=== PATIENT | female | born 1935 | race Caucasian/White ===

== ENCOUNTER 2021-06-05 19:27 | Emergency (ER) | payer MEDICARE, BC ==
[~2021-06-05] VITALS: Ht 165.1 cm; Wt 43.1 kg
[2021-06-05 21:29] LABS: Hematocrit 18.5 % (36.0-46.0); Mean Corpuscular Hemoglobin 32.2 pg (28.0-32.0); Mean Corpuscular Hgb Conc. 33.3 g/dL (32.0-36.0); Mean Corpuscular Volume 96.6 fL (80.0-100.0); Red Blood Cells 1.91 10^6/uL (4.0-5.20); Red Cell Distribution Width 19.2 % (11.8-14.3); White Blood Cell 19.3 10^3/uL (4.4-10.8)
[2021-06-05 21:30] LABS: INR 1.13 (0.9-1.15); Partial Thromboplastin Time 27.9 sec (23.6-33.0)
[2021-06-05 21:32] LABS: Albumin 2.1 g/dL (3.4-5.0); Calcium 7.8 mg/dL (8.5-10.1); Potassium 4.1 mmol/L (3.5-5.1)
[2021-06-05 21:34] LABS: BUN/Creatinine Ratio 18.2
[2021-06-05 21:41] LABS: Bilirubin, Total 0.7 mg/dL (0.2-1.0); Total Protein 5.5 g/dL (6.4-8.2)
[2021-06-05 21:58] LABS: Hemoglobin 6.1 g/dL (12.2-16.2)
[2021-06-05 22:00] LABS: Basophils % (manual) 0 (0.0-2.0); Blast Cells 0; Promyelocytes % 0; Reactive Lymphocytes 0
[2021-06-05 22:21] LABS: Band Neutrophils % (manual) 12; Eosinophils % (manual) 2 (0-7); Lymphocytes % (manual) 6 (10.0-50.0); Metamyelocytes % 2; Monocytes % (manual) 8 (0-12); Myelocytes % 1
[2021-06-05] MEDS ORDERED: MORPHINE SULFATE INJECTION 2 MG/ML SYRG ONE (22:51)
[2021-06-06] VITALS (10 sets, daily range): BP systolic 109–152; BP diastolic 31–63
[2021-06-06 00:13] LABS: % Iron Saturation 13.3 % (15-50)
[2021-06-06] MEDS ORDERED: MORPHINE SULFATE INJECTION 2 MG/ML SYRG ONE ×2 (00:39→03:39)
== END 2021-06-06 13:14 ==
LOC: EDBD 19:27 → ER 19:34
DX: D64.9 Anemia, unspecified (principal); Z20.822 Contact with and (suspected) exposure to COVID-19
CPT/HCPCS: 36415; 36430; 80053; 82728; 83540; 83550; 85007; 85027; 85610; 85730; 86850; 86900; 86901; 86920; 87426; 99285; J7050; P9016